=== PATIENT | female | born 1975 | race Caucasian/White ===

== ENCOUNTER → 2018-08-25 09:36 | Outpatient (CLI) | payer BC, SELFPAY ==
[2018-08-25 09:54] LABS: Basophils # 0.1 K/mm3 (0-0.2); Basophils % 0.9 % (0.1-2.0); Eosinophils # 0.2 K/mm3 (0.0-0.4); Eosinophils % 2.4 % (0.1-12.0); Hematocrit 43.2 % (37.0-47.0); Hemoglobin 14.3 g/dL (12.2-16.2); Lymphocytes # 2.3 K/mm3 (0.7-4.5); Lymphocytes % 25.7 % (10-50); Mean Corpuscular Hemoglobin 30.9 pg (27.0-31.2); Mean Corpuscular Volume 93.7 fl (81-99); Mean Platelet Volume 7.5 fl (7.4-10.4); Monocytes # 0.4 K/mm3 (0.1-1.0); Neutrophils % 67.1 % (37.0-80.0); Platelet Count 299 K/mm3 (142-424); Red Blood Count 4.61 M/mm3 (4.20-5.40); Red Cell Distribution Width 13.2 % (11.5-17.5); White Blood Count 8.9 K/mm3 (4.8-10.8)
[2018-08-25 10:23] LABS: Hemoglobin A1C 7.1 % (0.0-7.0)
[2018-08-25 11:46] LABS: Alanine Aminotransferase 27 U/L (12-78); Albumin Level 3.6 gm/dL (3.4-5.0); Albumin/Globulin Ratio 0.9 (1.1-1.8); Alkaline Phosphatase 100 U/L (46-116); Anion Gap 16.4 mEq/L (5-15); Aspartate Amino Transferase 11 U/L (15-37); Bilirubin,Total 0.2 mg/dL (0.2-1.0); Blood Urea Nitrogen 12 mg/dL (7-18); Calcium 9.2 mg/dL (8.5-10.1); Carbon Dioxide 24 mmol/L (21.0-32.0); Chloride 103 mmol/L (98-107); Chol/HDL Ratio 7.4 (1-3.5); Cholesterol 206 mg/dL (140-200); Creatinine,Serum 0.68 mg/dL (0.55-1.02); Estimated Glomerular Filt Rate 95 ml/min (>60); GFR (African American) 115 ML/MIN (>60); Globulin 3.8 gm/dl (1.3-3.2); Glucose 155 mg/dL (74-106); HDL Cholesterol 28 mg/dL (29-89); LDL Cholesterol 144 mg/dL (0-130); Potassium 4.4 mmoL/L (3.5-5.1); Sodium 139 mmol/L (136-145); Thyroid Stimulating Hormone 1.67 uIU/ml (0.358-3.740); Total Protein,Serum 7.4 gm/dL (6.4-8.2); Triglycerides 171 mg/dL (30-200); VLDL Cholesterol 34 mg/dL (0-40)
[2018-08-26 16:15] LABS: Vitamin B12 269 pg/mL (232-1245)
== END ==
PROVIDERS: Visit Provider Nurse Practitioner Family
DX: E78.5 Hyperlipidemia, unspecified (principal); E53.8 Deficiency of other specified B group vitamins; E66.01 Morbid (severe) obesity due to excess calories
CPT/HCPCS: 36415; 80053; 80061; 82607; 83036; 84443; 85025

== ENCOUNTER → 2018-09-15 09:17 | Outpatient (CLI) | payer BC, SELFPAY ==
--- NOTE | 2018-09-15 09:18 | MM_ITS ---
MM Dig screening mamm BI w/CAD CAD Screening COMPARISON: Digital mammograms with CAD 04/17/2016 INDICATION: There is no personal or family history of breast cancer TECHNIQUE: Standard CC and MLO images were obtained. R2 CAD reviewed. FINDINGS: Mild to moderate diffuse fibroglandular densities are seen in both breasts and the findings are bilateral and symmetrical. Again noted is a tiny benign-appearing nodular density outer quadrant left breast likely a tiny cyst or intramammary node. There is a possible asymmetric density left breast best seen on the MLO view with irregular possibly spiculated borders. Recommend patient return for spot compression views in MLO and CC projection, ultrasound may be necessary as well. There are no suspicious microcalcifications. IMPRESSION: Fibrofatty parenchyma with possible developing asymmetric density left breast BI-RADS Category: 0 Need Additional Imaging Evaluation RECOMMENDED FOLLOW-UP: IMM - IMMEDIATE FOLLOW-UP RECOMMENDED (A letter has been sent to the patient regarding results of the study.)
== END ==
PROVIDERS: PCP Nurse Practitioner Family; Visit Provider Nurse Practitioner Family
DX: Z12.31 Encounter for screening mammogram for malignant neoplasm of breast (principal)
CPT/HCPCS: 77067

== ENCOUNTER → 2018-10-06 13:18 | Outpatient (CLI) | payer BC, SELFPAY ==
--- NOTE | 2018-10-06 13:21 | US_ITS ---
MM Dig mamm DX unilat LT CAD, US breast LT complete Ordering Physician: Soniya Wilks Patient Age: 43 years Female COMPARISON: April 17, 2016 &. September 15, 2018 bilateral screening mammogram studies studies INDICATION: Questionable nodular density superior left breast recent screening mammogram, now for further evaluation . DIAGNOSTIC LEFT MAMMOGRAM with spot views ... Spot CC, MLO views performed along with a full breast 90 degree view left breast The nodular densities seen on recent mammogram are less evident & to dissipate on today's 90 degree and CC spot view study.. Again densities seem to particularly dissipate on the 90 degrees view & appear to compress out and less evident on today's cc view. No new areas of significant concern. . ULTRASOUND LEFT BREAST including axillary ultrasound survey survey entire left breast including axillary survey No cyst nor solid nodule. No architectural distortion. No findings of concern by ultrasound. Axillary survey demonstrates scattered benign axillary lymph nodes. ------IMPRESSION: Both today's mammogram views, and the subsequent unremarkable breast ultrasound, overall decreased concern regarding any significant new finding. Suspect prior studies merely reflected overlapping shadows. .. Recommend a follow-up left mammogram in 6-7 months to confirm stability hopefully can resume routine annual screening protocol thereafter. BI-RADS Category: 3 Probably Benign Finding Short Term Follow-up RECOMMENDED FOLLOW-UP: 6M 6 MONTH FOLLOW-UP A letter has been sent to the patient regarding results of the study.)
== END ==
PROVIDERS: PCP Internal Medicine Adolescent Medicine; Visit Provider Nurse Practitioner Family
DX: R92.8 Other abnormal and inconclusive findings on diagnostic imaging of breast (principal)
CPT/HCPCS: 76641; 77065

== ENCOUNTER → 2019-05-07 07:19 | Outpatient (CLI) | payer BC, SELFPAY ==
[2019-05-07 07:43] LABS: Basophils # 0.1 K/mm3 (0-0.2); Basophils % 0.7 % (0.1-2.0); Eosinophils # 0.2 K/mm3 (0.0-0.4); Eosinophils % 1.9 % (0.1-12.0); Hematocrit 41.9 % (37.0-47.0); Hemoglobin 12.9 g/dL (12.2-16.2); Lymphocytes # 2.4 K/mm3 (0.7-4.5); Lymphocytes % 28.5 % (10-50); Mean Corpuscular HGB Conc 30.9 g/dL (31.8-35.4); Mean Corpuscular Volume 97.2 fl (81-99); Mean Platelet Volume 9.1 fl (7.4-10.4); Monocytes # 0.5 K/mm3 (0.1-1.0); Monocytes % 5.8 % (1.7-9.3); Neutrophils # 5.4 K/mm3 (1.8-7.8); Neutrophils % 63.1 % (37.0-80.0); Platelet Count 277 K/mm3 (142-424); Red Blood Count 4.31 M/mm3 (4.20-5.40); White Blood Count 8.5 K/mm3 (4.8-10.8)
[2019-05-07 08:02] LABS: Hemoglobin A1C 7.3 % (0.0-7.0)
[2019-05-07 08:48] LABS: Alanine Aminotransferase 26 U/L (12-78); Albumin Level 3.5 gm/dL (3.4-5.0); Alkaline Phosphatase 115 U/L (46-116); Aspartate Amino Transferase 9 U/L (15-37); Bilirubin,Total 0.2 mg/dL (0.2-1.0); Blood Urea Nitrogen 11 mg/dL (7-18); Calcium 9.1 mg/dL (8.5-10.1); Carbon Dioxide 26 mmol/L (21.0-32.0); Chloride 101 mmol/L (98-107); Chol/HDL Ratio 6.7 (1-3.5); Cholesterol 193 mg/dL (140-200); Creatinine,Serum 0.84 mg/dL (0.55-1.02); Estimated Glomerular Filt Rate 74 ml/min (>60); GFR (African American) 90 ML/MIN (>60); Globulin 3.5 gm/dl (1.3-3.2); Glucose 256 mg/dL (74-106); HDL Cholesterol 29 mg/dL (29-89); LDL Cholesterol 117 mg/dL (0-130); Sodium 137 mmol/L (136-145); Triglycerides 234 mg/dL (30-200); VLDL Cholesterol 47 mg/dL (0-40)
[2019-05-08 11:10] LABS: Creatinine, Urine 140.6 mg/dL (Not Estab.); Microalbumin, Urine 12.2 ug/mL (Not Estab.)
[2019-05-08 17:27] LABS: Vitamin B12 277 pg/mL (232-1245)
== END ==
PROVIDERS: Visit Provider Nurse Practitioner Family
DX: E78.5 Hyperlipidemia, unspecified (principal); E53.8 Deficiency of other specified B group vitamins; E11.9 Type 2 diabetes mellitus without complications
CPT/HCPCS: 36415; 80053; 80061; 82043; 82570; 82607; 83036; 85025

== ENCOUNTER → 2019-06-15 12:49 | Outpatient (CLI) | payer BC, SELFPAY ==
--- NOTE | 2019-06-15 13:06 | MM_ITS ---
PROCEDURE: MM DIG MAMM DX UNILAT LT CAD CLINICAL INDICATION: 6 MO FU COMPARISON: DMSB DIG MAMM-SCREEN JULIO from 04/17/2016 [facility] MM Dig screening mamm BI w/CAD from 09/15/2018 DXLT MM Dig mamm DX unilat LT CAD from 10/06/2018 TECHNIQUE: Standard CC and MLO images were obtained. R2 CAD reviewed. FINDINGS: Scattered fibroglandular densities are seen in the breast. There is a stable benign-appearing nodular density near the axillary tail and this is likely low-lying node. There are no other nodular densities identified. There are no suspicious microcalcifications. IMPRESSION: Stable exam with no suspicious lesions seen, recommend the patient return to normal yearly screening BI-RAD Category: 2 Benign Finding(s) FOLLOW-UP: 6M 6Month Follow-up to return to normal yearly screening schedule (A letter has been sent to the patient regarding results of the study.) Dictated by: Dr. Joshua Jett MD 06/17/2019 09:[address] Joshua Jett MD in [place] 06/17/2019 09:59
--- NOTE | 2019-06-15 13:06 | US_ITS ---
PROCEDURE: US BREAST LT COMPLETE CLINICAL INDICATION: 6 MO FU COMPARISON: BREASTLT US breast LT complete from 10/06/2018 FINDINGS: Diffuse somewhat homogeneous echogenicity is seen throughout the breast. There is no suspicious cystic or solid lesion identified. There are couple normal appearing nodes in the axilla.. IMPRESSION: Unremarkable ultrasound left breast and recommend the patient continue with yearly screening mammography Dictated by: Dr. Joshua Jett MD 06/17/2019 10:[address] Joshua Jett MD in [place] 06/17/2019 10:01
== END ==
PROVIDERS: PCP Internal Medicine Adolescent Medicine; Visit Provider Nurse Practitioner Family
DX: R92.8 Other abnormal and inconclusive findings on diagnostic imaging of breast (principal)
CPT/HCPCS: 76641; 77065

== ENCOUNTER → 2020-12-30 07:15 | Outpatient (CLI) | payer BC, SELFPAY ==
[2020-12-30 08:01] LABS: Basophils # 0.1 K/mm3 (0-0.2); Basophils % 0.6 % (0.1-2.0); Eosinophils # 0.2 K/mm3 (0.0-0.4); Eosinophils % 1.8 % (0.1-12.0); Hematocrit 39.7 % (37.0-47.0); Hemoglobin 13.5 g/dL (12.2-16.2); Lymphocytes % 31.9 % (10-50); Mean Corpuscular HGB Conc 34.2 g/dL (31.8-35.4); Mean Corpuscular Hemoglobin 29.9 pg (27.0-31.2); Mean Corpuscular Volume 87.4 fl (81-99); Mean Platelet Volume 9.5 fl (7.4-10.4); Monocytes # 0.4 K/mm3 (0.1-1.0); Monocytes % 4.5 % (1.7-9.3); Neutrophils # 5.7 K/mm3 (1.8-7.8); Neutrophils % 61.2 % (37.0-80.0); Platelet Count 201 K/mm3 (142-424); Red Blood Count 4.54 M/mm3 (4.20-5.40); Red Cell Distribution Width 13.6 % (11.5-17.5); White Blood Count 9.3 K/mm3 (4.8-10.8)
[2020-12-30 08:13] LABS: Chloride 104 mmol/L (98-107); Potassium 3.8 mmoL/L (3.5-5.1); Sodium 134 mmol/L (136-145)
[2020-12-30 08:16] LABS: Alanine Aminotransferase 29 U/L (12-78); Albumin Level 3.8 g/dl (3.5-5.0); Albumin/Globulin Ratio 1.5 (1.1-1.8); Alkaline Phosphatase 138 U/L (38-126); Anion Gap 9.8 mEq/L (5-15); Aspartate Amino Transferase 23 U/L (14-36); Bilirubin,Total 0.4 mg/dl (0.2-1.3); Blood Urea Nitrogen 7 mg/dl (7-17); Carbon Dioxide 24 mmol/L (22.0-30.0); Cholesterol 192 mg/dl (140-200); Estimated Glomerular Filt Rate 173 ml/min (>60); GFR (African American) 210 ML/MIN (>60); Globulin 2.6 g/dL (1.3-3.2); Total Protein,Serum 6.4 g/dl (6.3-8.2); Triglycerides 386 mg/dl (30-150); VLDL Cholesterol 77 mg/dL (0-40)
[2020-12-30 08:17] LABS: Calcium 8.7 mg/dl (8.4-10.2); Chol/HDL Ratio 6.2 (1-3.5); Glucose 286 mg/dl (74-100); HDL Cholesterol 31 mg/dl (40-60)
[2020-12-30 08:27] LABS: Hemoglobin A1C 11.2 % (4.0-6.0)
[2020-12-30 08:33] LABS: 25-OH Vitamin D, Total 26.3 ng/mL (30-100)
[2020-12-30 08:47] LABS: Thyroid Stimulating Hormone 2.97 uIU/mL (0.465-4.68)
[2020-12-30 09:57] LABS: Vitamin B12 291 pg/mL (239-931)
== END ==
PROVIDERS: Visit Provider Nurse Practitioner Family
DX: Z00.00 Encounter for general adult medical examination without abnormal findings (principal); E78.5 Hyperlipidemia, unspecified; E55.9 Vitamin D deficiency, unspecified; R20.2 Paresthesia of skin; Z79.899 Other long term (current) drug therapy
CPT/HCPCS: 36415; 80053; 80061; 82306; 82607; 83036; 84443; 85025

== ENCOUNTER → 2021-01-09 09:53 | Outpatient (CLI) | payer BC, SELFPAY ==
--- NOTE | 2021-01-09 09:55 | MM_ITS ---
PROCEDURE: MM DIG SCREENING MAMM BI W/CAD Digital Breast Tomosynthesis Included CLINICAL INDICATION: SCREENING There is no personal or family history of breast cancer. COMPARISON: MG [facility] MM Dig screening mamm BI w/CAD from 09/15/2018 MG DXLT MM Dig mamm DX unilat LT CAD from 10/06/2018 MG MM DIG MAMM DX UNILAT LT CAD from 06/15/2019 TECHNIQUE: Standard CC and MLO images and 3D Tomosynthesis was obtained. R2 CAD reviewed. FINDINGS: Prominent diffuse fibroglandular densities are seen throughout both breast the findings are fairly symmetrical bilaterally. Couple of benign-appearing microcalcifications deep within the left breast. There is a tiny benign-appearing nodular density low in the axilla left breast likely a low-lying node.. There is a possible new nodular density deep within the right breast only definitely seen on the MLO view and best appreciated on the ronn images. Recommend the patient return for spot compression views the area marked on the images and ultrasound for additional evaluation. IMPRESSION: Moderate diffuse breast density with possible new density right breast BI-RAD Category: 0 Need Additional Imaging Evaluation FOLLOW-UP: IMM Immediate Follow-up Recommended (A letter has been sent to the patient regarding results of the study.) Dictated by: Dr. Joshua Jett MD 01/11/2021 08:05 Dr. Joshua Jett MD in [place] 01/11/2021 08:05
== END ==
PROVIDERS: PCP Nurse Practitioner Family; Visit Provider Nurse Practitioner Family
DX: Z12.31 Encounter for screening mammogram for malignant neoplasm of breast (principal)
CPT/HCPCS: 77063; 77067

== ENCOUNTER → 2021-02-13 14:39 | Outpatient (CLI) | payer BC, SELFPAY ==
--- NOTE | 2021-02-13 14:42 | MM_ITS ---
PROCEDURE: MM DIG MAMM DX UNILAT RT CAD Digital Breast Tomosynthesis Included CLINICAL INDICATION: ABN MAMM OF RT BREAST COMPARISON: MG [facility] MM Dig screening mamm BI w/CAD from 09/15/2018 MG DXLT MM Dig mamm DX unilat LT CAD from 10/06/2018 MG MM DIG MAMM DX UNILAT LT CAD from 06/15/2019 MG MM DIG SCREENING MAMM BI W/CAD from 01/09/2021 US US BREAST RT COMPLETE from 02/13/2021 TECHNIQUE: Spot-compression views are performed of the right breast. FINDINGS: The area of asymmetry in the upper outer aspect of the right breast does appear to compress out as fibroglandular tissue. Right breast ultrasound: No cystic or solid lesions evident. IMPRESSION: The area of asymmetric density in the upper outer aspect of the right breast does appear to compress out and may represent fibroglandular tissue with no sonographic abnormality. Recommend six-month mammographic follow-up. Repeat ultrasound can be performed if the asymmetry persists. BI-RAD Category: 3 Probably Benign Finding Short Term Follow-Up FOLLOW-UP: 6M 6 Month Follow-up (A letter has been sent to the patient regarding results of the study.) Dictated by: Camilo Vora MD 02/17/2021 11:59 Camilo Vora MD in [place] 02/17/2021 11:59
== END ==
PROVIDERS: PCP Nurse Practitioner Family; Visit Provider Nurse Practitioner Family
DX: R92.8 Other abnormal and inconclusive findings on diagnostic imaging of breast (principal)
CPT/HCPCS: 76641; 77061; 77065; G0279

== ENCOUNTER → 2021-03-20 07:29 | Outpatient (CLI) | payer BC, SELFPAY ==
[2021-03-20 08:15] LABS: Hemoglobin A1C 7.3 % (4.0-6.0)
[2021-03-20 08:37] LABS: Chloride 108 mmol/L (98-107); Sodium 139 mmol/L (136-145)
[2021-03-20 08:38] LABS: Potassium 4.1 mmoL/L (3.5-5.1)
[2021-03-20 08:40] LABS: Alanine Aminotransferase 14 U/L (12-78); Albumin/Globulin Ratio 1.4 (1.1-1.8); Alkaline Phosphatase 94 U/L (38-126); Anion Gap 14.1 mEq/L (5-15); Aspartate Amino Transferase 17 U/L (14-36); Blood Urea Nitrogen 13 mg/dl (7-17); Carbon Dioxide 21 mmol/L (22.0-30.0); Estimated Glomerular Filt Rate 108 ml/min (>60); GFR (African American) 131 ML/MIN (>60); Globulin 2.8 g/dL (1.3-3.2); Total Protein,Serum 6.8 g/dl (6.3-8.2)
[2021-03-20 08:41] LABS: Bilirubin,Total < 0.1 mg/dl (0.2-1.3); Calcium 9.1 mg/dl (8.4-10.2); Glucose 156 mg/dl (74-100)
== END ==
PROVIDERS: Visit Provider Nurse Practitioner Family
DX: E11.65 Type 2 diabetes mellitus with hyperglycemia (principal); B35.1 Tinea unguium
CPT/HCPCS: 36415; 80053; 83036

== ENCOUNTER 2021-06-30 08:00 | Outpatient (RCR) | payer BC, SELFPAY ==
--- NOTE | 2021-06-05 09:12 | [facility].PTOPEV ---
PT Outpatient Evaluation Rehab PT Outpatient Evaluation Start: 06/05/21 08:25 Freq: Status: Active Protocol: Document 06/05/21 08:25 BABAK (Rec: 06/05/21 08:42 BABAK [id number]) Electronically Signed By Vincent Greenfield, PT 06/05/21 08:25 Outpatient Therapy Subjective History Subjective History Pt reports insidious onset right UE N&T beginning ~2 yrs ago. Pt reports exacerbation ~ 6months ago, with s/s from right posterior shoulder area to fingers, mild pain, N&T. Pt reports recent MRI of cervical spine has revealed ' DDD, and disc buldges'. Chief Complaint Pain,Stiff,Paresthesia Symptom Type Ache,Dull,Numbness,Tingling Symptoms Relieved By Rest/Positioning,Heat Symptoms Aggravated By Physical Activity,Lifting Prior Functional Limitations Reaching,Lifting,Housework, Desk Work/Reading,Driving Current Functional Limitations Reaching,Lifting,Housework, Desk Work/Reading,Driving Symptom Description Constant but Variable Level of pain today (0-10) 1 Pain scale - at its best (0-10) 0 Pain scale - at its worst (0-10) 5 Cervical Eval Palpation Cervical Muscles R CT Junction,R Upper Trapezius Cervical/Thoracic Palpation Findings Tenderness,Trigger Point Posture Head/C-Spine Posture Sitting Position Flexed Head/C-Spine Posture Standing Position Flexed Flexibility Deficits Upper Trapezius Muscle Length (R) Moderate Tightness,(L) Moderate Tightness Levaetor Scapulae Muscle Length (R) Moderate Tightness,(L) Moderate Tightness Scalene Group Muscle Length (R) Moderate Tightness,(L) Moderate Tightness Passive Joint Mobility Cervical PIVM Dec: R OA L OA R AA L AA R C2/3 L C2/3 R C3/4 L C3/4 R C4/5 L C4/5 R C5/6 L C5/6 R C6/7 L C6/7 R C7/T1 L C7/T1 AROM Cervical Spine Extension Active Range of 0-35 Motion (degrees) C
== END 2021-06-30 08:05 | disposition home or self-care (01) ==
LOC: PT 08:00
PROVIDERS: PCP Nurse Practitioner Family; Visit Provider Nurse Practitioner Family
DX: M54.2 Cervicalgia (principal)
CPT/HCPCS: 97010; 97012; 97014; 97035; 97110; 97163; G0283

== ENCOUNTER → 2021-08-08 15:05 | Outpatient (CLI) | payer BC, SELFPAY | PROVIDERS: PCP Nurse Practitioner Family; Visit Provider Nurse Practitioner | DX: U07.1 COVID-19 (principal) | CPT/HCPCS: C9803; U0003; U0005 ==

== ENCOUNTER → 2021-08-29 08:00 | Outpatient (CLI) | payer BC, SELFPAY ==
[2021-08-30 08:28] LABS: Covid-19 Nasal PCR Sendout Lex NOT DETECTED
== END ==
PROVIDERS: Visit Provider Nurse Practitioner
DX: Z20.822 Contact with and (suspected) exposure to COVID-19 (principal)
CPT/HCPCS: C9803; U0004; U0005

== ENCOUNTER → 2022-02-07 07:38 | Outpatient (CLI) | payer BC, SELFPAY ==
--- NOTE | 2022-02-07 07:41 | MM_ITS ---
PROCEDURE INFORMATION: Exam: MG Bilateral Diagnostic Breast Tomosynthesis Exam date and time: 02/07/2022 7:58 AM Age: 47 years old Clinical indication: Short-term radiographic followup for tissue asymmetry in the right breast TECHNIQUE: Imaging protocol: Bilateral Diagnostic tomosynthesis and 2D mammography including computer-aided detection (CAD) when performed. Unilateral or bilateral exam. COMPARISON: 1. MG MM DIG MAMM DX UNILAT RT CAD 02/13/2021 2:42 PM 2. MG MM DIG SCREENING MAMM BI W/CAD 01/09/2021 10:08 AM FINDINGS: MAMMOGRAPHY: The breasts are heterogeneously dense, which may obscure small masses. There is no stellate mass, architectural distortion or suspicious microcalcifications in either breast to suggest malignancy. No suspicious focal asymmetries are identified. No skin thickening or axillary adenopathy. IMPRESSION: No mammographic evidence of malignancy. Annual bilateral mammographic screening is recommended unless otherwise clinically indicated. ASSESSMENT: BI-RADS Category 1: Negative
== END ==
LOC: RAD 07:38
PROVIDERS: PCP Nurse Practitioner Family; Visit Provider Nurse Practitioner Family
DX: R92.8 Other abnormal and inconclusive findings on diagnostic imaging of breast (principal)
CPT/HCPCS: 77062; 77066; G0279

== ENCOUNTER 2022-05-08 15:00 | Outpatient (RCR) | payer BC, SELFPAY | END 2022-05-08 15:05 | disposition home or self-care (01) | LOC: PT 15:00 | PROVIDERS: PCP Nurse Practitioner Family; Visit Provider Anesthesiology | DX: M47.814 Spondylosis without myelopathy or radiculopathy, thoracic region (principal) | CPT/HCPCS: 97010; 97014; 97110; 97112; 97140; 97163; G0283 ==

== ENCOUNTER → 2023-02-21 06:57 | Outpatient (CLI) | payer BC, SELFPAY ==
[2023-02-21 07:35] LABS: Creatinine,Urine Random 50 mg/dL (Not Estab.)
[2023-02-21 07:40] LABS: Basophils # 0.1 K/mm3 (0-0.2); Basophils % 0.6 % (0.1-2.0); Eosinophils # 0.2 K/mm3 (0.0-0.4); Eosinophils % 1.5 % (0.1-12.0); Hematocrit 48.7 % (37.0-47.0); Hemoglobin 15.1 g/dL (12.2-16.2); Lymphocytes # 3.8 K/mm3 (0.7-4.5); Mean Corpuscular Hemoglobin 29.9 pg (27.0-31.2); Mean Corpuscular Volume 96.5 fl (81-99); Mean Platelet Volume 9.5 fl (7.4-10.4); Microalbumin < 6.000 mg/L (0-16.7); Monocytes # 0.6 K/mm3 (0.1-1.0); Monocytes % 4.8 % (1.7-9.3); Neutrophils # 7.3 K/mm3 (1.8-7.8); Neutrophils % 61.1 % (37.0-80.0); Platelet Count 248 K/mm3 (142-424); Red Blood Count 5.05 M/mm3 (4.20-5.40); Red Cell Distribution Width 13.4 % (11.5-17.5); White Blood Count 11.9 K/mm3 (4.8-10.8)
[2023-02-21 08:15] LABS: Hemoglobin A1C 7.5 % (4.0-6.0)
[2023-02-21 08:35] LABS: Chloride 104 mmol/L (98-107)
[2023-02-21 08:36] LABS: Potassium 4.3 mmoL/L (3.5-5.1); Sodium 137 mmol/L (136-145)
[2023-02-21 08:38] LABS: Alanine Aminotransferase 37 U/L (12-78); Alkaline Phosphatase 124 U/L (38-126); Anion Gap 13.3 mEq/L (5-15); Aspartate Amino Transferase 29 U/L (14-36); Bilirubin,Total 0.4 mg/dl (0.2-1.3); Blood Urea Nitrogen 7 mg/dl (7-17); Carbon Dioxide 24 mmol/L (22.0-30.0); Cholesterol 162 mg/dl (140-200); Estimated Glomerular Filt Rate 132 ml/min (>60); GFR (African American) 160 ML/MIN (>60)
[2023-02-21 08:39] LABS: Albumin Level 4.4 g/dl (3.5-5.0); Albumin/Globulin Ratio 1.7 (1.1-1.8); Calcium 9.7 mg/dl (8.4-10.2); Chol/HDL Ratio 4.8 (1-3.5); Globulin 2.6 g/dL (1.3-3.2); Glucose 233 mg/dl (74-100); HDL Cholesterol 34 mg/dl (40-60)
[2023-02-21 08:41] LABS: Triglycerides 415 mg/dl (30-150)
[2023-02-21 09:51] LABS: Vitamin B12 > 1000 pg/mL (239-931)
== END ==
PROVIDERS: PCP Nurse Practitioner Family; Visit Provider Nurse Practitioner Family
DX: E11.40 Type 2 diabetes mellitus with diabetic neuropathy, unspecified (principal); E78.5 Hyperlipidemia, unspecified; E53.8 Deficiency of other specified B group vitamins
CPT/HCPCS: 36415; 80053; 80061; 82043; 82570; 82607; 83036; 85025

== ENCOUNTER 2023-11-28 15:48 | Outpatient (CLI) | payer BC, SELFPAY ==
--- NOTE | 2023-11-28 15:50 | MM_ITS ---
PROCEDURE INFORMATION: Exam: MG Bilateral Screening 3D Mammography Exam date and time: 11/28/2023 3:50 PM Age: 48 years old Clinical indication: Screening mammogram TECHNIQUE: Imaging protocol: Bilateral Screening tomosynthesis and 2D mammography including computer-aided detection (CAD) when performed. COMPARISON: 1. MG MM DIG MAMM BI DX W/CAD 02/07/2022 7:58 AM 2. MG MM DIG MAMM DX UNILAT RT CAD 02/13/2021 2:42 PM 3. MG MM DIG SCREENING MAMM BI W/CAD 01/09/2021 10:08 AM 4. MG MM DIG MAMM DX UNILAT LT CAD 06/15/2019 1:22 PM FINDINGS: MAMMOGRAPHY: Breast composition: There are scattered areas of fibroglandular density. Mass: None. Architectural distortion: No new or suspicious architectural distortion. Calcifications: No new or suspicious calcifications are present Asymmetric density: No new or suspicious asymmetric density is present Skin thickening: None. Axillary adenopathy: None. IMPRESSION: No mammographic evidence of malignancy. Recommend annual screening mammography unless otherwise clinically indicated. ASSESSMENT: BI-RADS category 1: Negative.
== END 2023-11-28 23:59 | disposition home or self-care (01) ==
LOC: RAD 15:48
PROVIDERS: PCP Nurse Practitioner Family; Visit Provider Nurse Practitioner Family
DX: Z12.31 Encounter for screening mammogram for malignant neoplasm of breast (principal)
CPT/HCPCS: 77063; 77067

== ENCOUNTER 2024-07-08 08:11 | Outpatient (CLI) | payer BC, SELFPAY ==
[2024-07-08 09:06] LABS: Basophils % 0.8 % (0.1-2.0); Eosinophils % 1.4 % (0.1-12.0); Hematocrit 44.4 % (37.0-47.0); Hemoglobin 14.6 g/dL (12.2-16.2); Lymphocytes # 2.4 K/mm3 (0.7-4.5); Lymphocytes % 21.3 % (10-50); Mean Corpuscular HGB Conc 32.9 g/dL (31.8-35.4); Mean Corpuscular Hemoglobin 30.5 pg (27.0-31.2); Mean Corpuscular Volume 92.9 fl (81-99); Mean Platelet Volume 11.7 fl (7.4-10.4); Monocytes % 6.3 % (1.7-9.3); Neutrophils # 7.7 K/mm3 (1.8-7.8); Neutrophils % 69.7 % (37.0-80.0); Platelet Count 232 K/mm3 (142-424); Red Blood Count 4.78 M/mm3 (4.20-5.40); Red Cell Distribution Width 12.5 % (11.5-17.5)
[2024-07-08 09:07] LABS: Basophils # 0.1 K/mm3 (0-0.2); Eosinophils # 0.2 K/mm3 (0.0-0.4); Monocytes # 0.7 K/mm3 (0.1-1.0)
[2024-07-08 09:28] LABS: Albumin Level 4.2 g/dl (3.5-5.0); Chloride 107 mmol/L (98-107)
[2024-07-08 09:29] LABS: Potassium 4.5 mmoL/L (3.5-5.1); Sodium 134 mmol/L (136-145)
[2024-07-08 09:31] LABS: Alanine Aminotransferase 33 U/L (12-78); Albumin/Globulin Ratio 1.8 (1.1-1.8); Anion Gap 8.5 mEq/L (5-15); Aspartate Amino Transferase 31 U/L (14-36); Blood Urea Nitrogen 8 mg/dl (7-17); Carbon Dioxide 23 mmol/L (22.0-30.0); Estimated Glomerular Filt Rate 107 ml/min (>60); GFR (African American) 129 ML/MIN (>60); Globulin 2.3 g/dL (1.3-3.2); Total Protein,Serum 6.5 g/dl (6.3-8.2)
[2024-07-08 09:32] LABS: Alkaline Phosphatase 110 U/L (38-126); Bilirubin,Total 0.5 mg/dl (0.2-1.3); Calcium 9.4 mg/dl (8.4-10.2); Chol/HDL Ratio 4.9 (1-3.5); Cholesterol 138 mg/dl (140-200); Glucose 269 mg/dl (74-100); HDL Cholesterol 28 mg/dl (40-60); Triglycerides 258 mg/dl (30-150); VLDL Cholesterol 52 mg/dL (0-40)
[2024-07-08 09:41] LABS: Microalbumin/Creatinine Ratio 59.4
[2024-07-08 09:43] LABS: Direct LDL Cholesterol 77.21 mg/dL (100-129)
[2024-07-08 09:47] LABS: Creatinine,Urine Random 56 mg/dL (Not Estab.)
[2024-07-08 10:36] LABS: Hemoglobin A1C 8.5 % (4.0-6.0)
[2024-07-08 11:09] LABS: Vitamin B12 563 pg/mL (239-931)
== END 2024-07-08 23:59 | disposition home or self-care (01) ==
LOC: LAB 08:13
PROVIDERS: PCP Nurse Practitioner Family; Visit Provider Nurse Practitioner Family
DX: E78.5 Hyperlipidemia, unspecified (principal); E53.8 Deficiency of other specified B group vitamins; E11.40 Type 2 diabetes mellitus with diabetic neuropathy, unspecified; Z79.84 Long term (current) use of oral hypoglycemic drugs
CPT/HCPCS: 36415; 80053; 80061; 82043; 82570; 82607; 83036; 85025

== ENCOUNTER 2024-10-15 16:05 | Outpatient (CLI) | payer BC, SELFPAY ==
[2024-10-15 20:54] LABS: Blood Urea Nitrogen 5 mg/dl (7-17); Calcium 9.5 mg/dl (8.4-10.2); Carbon Dioxide 23 mmol/L (22.0-30.0); Chloride 102 mmol/L (98-107); Estimated Glomerular Filt Rate 170 ml/min (>60); GFR (African American) 206 ML/MIN (>60); Glucose 283 mg/dl (74-100); Sodium 136 mmol/L (136-145)
[2024-10-15 21:23] LABS: Anion Gap 15.6 mEq/L (5-15); Potassium 4.6 mmoL/L (3.5-5.1)
== END 2024-10-15 23:59 | disposition home or self-care (01) ==
LOC: LAB 16:05
PROVIDERS: PCP Nurse Practitioner Family; Visit Provider Nurse Practitioner Family
DX: E11.40 Type 2 diabetes mellitus with diabetic neuropathy, unspecified (principal)
CPT/HCPCS: 36415; 80048; 83036

== ENCOUNTER 2024-12-04 10:10 | Outpatient (CLI) | payer BC, SELFPAY ==
--- NOTE | 2024-12-04 10:12 | MM_ITS ---
PROCEDURE INFORMATION: Exam: MG Bilateral Screening 3D Mammography Exam date and time: 12/04/2024 10:20 AM Age: 49 years old Clinical indication: Screening examination TECHNIQUE: Imaging protocol: Bilateral Screening tomosynthesis and 2D mammography including computer-aided detection (CAD) when performed. COMPARISON: 1. MG MM DIG SCREENING MAMM BI W/CAD 11/28/2023 3:50 PM 2. MG MM DIG MAMM BI DX W/CAD 02/07/2022 7:58 AM FINDINGS: MAMMOGRAPHY: Breast composition: The breasts are heterogeneously dense, which may obscure small masses. Mass: None. Architectural distortion: None. Calcifications: No suspicious calcifications. Asymmetric density: None. Skin thickening: None. Axillary adenopathy: None. IMPRESSION: No mammographic evidence of malignancy. Annual screening is recommended unless otherwise clinically indicated. ASSESSMENT: BI-RADS 1, Negative.
--- OUTSIDE RECORDS SUMMARY | 2024-12-04 10:12 | XMS_ITS | Data Portability ---
Author Organization [place] [facility] [place] & JEAN MARIE Granados ADMIN Address [address] [place] [id number] Care Team Providers Care Drilling Superintendent Name Role Phone ALEJANDRO HANDY Primary Care Provider Assessment Encounter Date Assessment Date Assessment LastModified by Organization Details LastModified Time 02/13/2024 02/13/2024 The patient is a 48 year old female self referral for bilateral foot pain with onset 2 years ago. The patient previously followed with [facility], as well as Dr. Ventura, whom was prescribing pain medication and starting the process of neuromodulation. The patient has DM (last A1C was 7). The patient smokes cigarettes. The patient presents to the clinic today for a medication refill. Because the current medication regimen is effective and well-tolerable, allowing her to remain functional, I will refill for 3 months. The patient takes Pregabalin 200 mg Q8 hours. I have advised the patient to attempt to self-taper by decreasing to Q12 hour dosing when pain isn't severe. The patient is nearly 3.5 months S/P DRG implant x4 leads at bilateral L5 and S1, which was successful in decreasing bilateral foot pain by greater than 50%, yet pain remains bothersome. The goal is to optimize DRG therapy, as such I will conduct a reprogramming to better target the pain pattern. An [employer] construction sales representative was present for education and to assist with reprogramming as needed. At the last visit, I placed a referral to vascular for further evaluation of BLE pain, as an underlying vascular etiology/patholog y may be contributing. The patient has a vascular consult next week. I will follow up for a medication refill. I have discussed in great detail our potential treatment options which would include a rehabilitative approach to care. This program would include medication management, Physical Therapy, consideration for interventional procedures as appropriate, and lifestyle modification (diet, weight loss, exercise, smoking/tobacco cessation, holistic approach including meditation and yoga). The patient understands and agrees prior to proceeding with this plan. _ __ __ __ __ __ __ __ __ __ __ __ __ __ __ __ __ __ __ __ __ __ __ __ __ __ __ __ _ I counseled the patient extensively and informed of the risks of the procedure, including the risk of paralysis, nerve damage, respiratory arrest, arrhythmias, stroke, weakness, and infection, which although very low, could result in or disability. The patient acknowledged to me that they understand and accept these risks. RN EDUCATION Extensive coordination of care provided by RN to educate patient on upcoming procedure and to coordinate obtaining extensive incoming medical records. ------ RECORDS REVIEW: As per clinic policy, we will have the patient sign a release to obtain previous imaging and clinical notes. _ __ __ __ __ __ __ __ __ __ __ __ __ __ __ __ __ __ __ __ __ __ __ __ __ __ __ __ _ PSYCH: Pain affecting Neuro-psych behavior was discussed. Discussed about pain psychological counseling as a part of the multimodal approach to pain treatment. _ __ __ __ __ __ __ __ __ __ __ __ __ __ __ __ __ __ __ __ __ __ __ __ __ __ __ __ _ REHABILITATION: Discussed with the patient the importance of diet, daily physical activity and PT. Discussed with the patient the need to be scheduled for physical therapy since physical therapy will prolong the benefits of the procedure and interventions. _ __ __ __ __ __ __ __ __ __ __ __ __ __ __ __ __ __ __ __ __ __ __ __ __ __ __ __ _ GRETCHEN: [id number] I have reviewed patient's GRETCHEN report prior to prescribing Schedule II, III, and IV medications that require review by law. [place] PDMP reviewed and appropriate. UDS reviewed and consistent with current regimen. Controlled substance contract reviewed and signed line by line. Risks of medication therapy including respiratory depression, , and hazards of operating heavy machinery including automobiles discussed at length. Patient given information with six opioid/Controlled substance safety steps: 1. Never take a prescription pain medication unless it is prescribed for you. 2. Do not take pain medicine with alcohol. 3. Do not take more doses than prescribed. 4. Use with other sedative or anti-anxiety medications can be dangerous. 5. Avoid using prescription pain medication to help you fall asleep. 6. Lock up prescription pain medications. Opioid Contract Discussion: The patient was given a copy of the Clinic Prescription Drug Agreement and was counseled extensively regarding its contents. The patient is to take their pain medication exactly as prescribed. No increases in medications are to be without first contacting the office and explaining the reason behind the increase and getting approval to do so. The patient is not to obtain medications from other providers without first notifying the other provider what they obtain from this clinic and need to notify this clinic when they obtain pain medications from other providers. The patient is to bring their pain medications to each and every office visit for pill counts to monitor compliance for their safety. The patient is subject to periodic urine drug testing at the discretion of the provider as well as state and federal regulations. The patient was warned of the risks and benefits of taking opioid pain medication, the risk of addiction, the risk of withdrawal and the differences. [email or web address] Not available 02/16/2024 09:42:58 04/28/2024 04/28/2024 The patient is a 49 year old female self referral for bilateral foot pain with onset 2 years ago. The patient previously followed with [facility], as well as Dr. Ventura, whom was prescribing pain medication and starting the process of neuromodulation. The patient has DM (last A1C was 7). The patient smokes cigarettes. [email or web address] Not available 04/28/2024 14:02:38 08/07/2024 08/07/2024 The patient is a 49 year old female self referral for bilateral foot pain with onset 2 years ago. The patient previously followed with [facility], as well as Dr. Ventura, whom was prescribing pain medication and starting the process of neuromodulation. The patient has DM (last A1C was 7). The patient smokes cigarettes. The patient recently underwent a hernia repair surgery. [email or web address] Not available 08/10/2024 09:38:08 09/04/2024 09/04/2024 The patient is a 49 year old female self referral for bilateral foot pain with onset 2 years ago. The patient previously followed with [facility], as well as Dr. Ventura, whom was prescribing pain medication and starting the process of neuromodulation. The patient has DM (last A1C was 7). The patient smokes cigarettes. The patient recently underwent a hernia repair surgery. [email or web address] Not available 09/07/2024 15:22:41 10/29/2024 10/29/2024 The patient is a 49 year old female self referral for bilateral foot pain with onset 2 years ago. The patient previously followed with [facility], as well as Dr. Ventura, whom was prescribing pain medication and starting the process of neuromodulation. The patient has DM (last A1C was 7). The patient smokes cigarettes. The patient recently underwent a hernia repair surgery. [email or web address] Not available 10/29/2024 15:12:50 Plan of Treatment Reminders Order Date Submit Date Provider Last Modified By Organization Details Last Modified Time Details Appointments OV EST 15 2024 01:45P M ABEL SWARTZ PA-C Not available Not available Not available Lab None record ed. Referral None record ed. Procedures None record ed. Surgeries None record ed. Imaging None record ed. Medication Orders pregab frantz 150 mg capsul e 2024 025 [facility], [address], [place], [place], [id number], 10/29/2024 21:48:58 pregab frantz 150 mg capsul e 2024 025 [facility], [address], [address], [place], [place], [id number], 09/07/2024 15:36:34 pregab frantz 200 mg capsul e 2024 025 [facility], [address], [address], [place], [place], [id number], 10/29/2024 14:42:53 pregab frantz 200 mg capsul e 2023 024 [facility], [address] [facility], [address], [place], [place], [id number], 10/29/2024 14:42:32 pregab frantz 200 mg capsul e 2023 024 [facility], [address] [facility], [address], [place], [place], [id number], 10/29/2024 14:42:32 Patient TargetsNo targets recorded. Patient Instructions Encounter Date Encounter Id Patient Instructions Last Modified By Organization Details Last Modified Time 04/28/2024 [id number] I have discussed in great detail our potential treatment options which would include a rehabilitative approach to care. This program would include medication management, Physical Therapy, consideration for interventional procedures as appropriate, and lifestyle modification (diet, weight loss, exercise, smoking/tobacco cessation, holistic approach including meditation and yoga). The patient understands and agrees prior to proceeding with this plan. _ __ __ __ __ __ __ __ __ __ __ __ __ __ __ __ __ __ __ __ __ __ __ __ __ __ __ __ _ I counseled the patient extensively and informed of the risks of the procedure, including the risk of paralysis, nerve damage, respiratory arrest, arrhythmias, stroke, weakness, and infection, which although very low, could result in or disability. The patient acknowledged to me that they understand and accept these risks. RN EDUCATION Extensive coordination of care provided by RN to educate patient on upcoming procedure and to coordinate obtaining extensive incoming medical records. - RECORDS REVIEW: As per clinic policy, we will have the patient sign a release to obtain previous imaging and clinical notes. _ __ __ __ __ __ __ __ __ __ __ __ __ __ __ __ __ __ __ __ __ __ __ __ __ __ __ __ _ PSYCH: Pain affecting Neuro-psych behavior was discussed. Discussed about pain psychological counseling as a part of the multimodal approach to pain treatment. _ __ __ __ __ __ __ __ __ __ __ __ __ __ __ __ __ __ __ __ __ __ __ __ __ __ __ __ _ REHABILITATION: Discussed with the patient the importance of diet, daily physical activity and PT. Discussed with the patient the need to be scheduled for physical therapy since physical therapy will prolong the benefits of the procedure and interventions. _ __ __ __ __ __ __ __ __ __ __ __ __ __ __ __ __ __ __ __ __ __ __ __ __ __ __ __ _ GRETCHEN: [id number] I have reviewed patient's GRETCHEN report prior to prescribing Schedule II, III, and IV medications that require review by law. [place] PDMP reviewed and appropriate. UDS reviewed and consistent with current regimen. Controlled substance contract reviewed and signed line by line. Risks of medication therapy including respiratory depression, , and hazards of operating heavy machinery including automobiles discussed at length. Patient given information with six opioid/Controlled substance safety steps: 1. Never take a prescription pain medication unless it is prescribed for you. 2. Do not take pain medicine with alcohol. 3. Do not take more doses than prescribed. 4. Use with other sedative or anti-anxiety medications can be dangerous. 5. Avoid using prescription pain medication to help you fall asleep. 6. Lock up prescription pain medications. Opioid Contract Discussion: The patient was given a copy of the Clinic Prescription Drug Agreement and was counseled extensively regarding its contents. The patient is to take their pain medication exactly as prescribed. No increases in medications are to be without first contacting the office and explaining the reason behind the increase and getting approval to do so. The patient is not to obtain medications from other providers without first notifying the other provider what they obtain from this clinic and need to notify this clinic when they obtain pain medications from other providers. The patient is to bring their pain medications to each and every office visit for pill counts to monitor compliance for their safety. The patient is subject to periodic urine drug testing at the discretion of the provider as well as state and federal regulations. The patient was warned of the risks and benefits of taking opioid pain medication, the risk of addiction, the risk of withdrawal and the differences. [email or web address] Not available 04/28/2024 14:01:11 08/07/2024 [id number] I have discussed in great detail our potential treatment options which would include a rehabilitative approach to care. This program would include medication management, Physical Therapy, consideration for interventional procedures as appropriate, and lifestyle modification (diet, weight loss, exercise, smoking/tobacco cessation, holistic approach including meditation and yoga). The patient understands and agrees prior to proceeding with this plan. _ __ __ __ __ __ __ __ __ __ __ __ __ __ __ __ __ __ __ __ __ __ __ __ __ __ __ __ _ I counseled the patient extensively and informed of the risks of the procedure, including the risk of paralysis, nerve damage, respiratory arrest, arrhythmias, stroke, weakness, and infection, which although very low, could result in or disability. The patient acknowledged to me that they understand and accept these risks. RN EDUCATION Extensive coordination of care provided by RN to educate patient on upcoming procedure and to coordinate obtaining extensive incoming medical records. - RECORDS REVIEW: As per clinic policy, we will have the patient sign a release to obtain previous imaging and clinical notes. _ __ __ __ __ __ __ __ __ __ __ __ __ __ __ __ __ __ __ __ __ __ __ __ __ __ __ __ _ PSYCH: Pain affecting Neuro-psych behavior was discussed. Discussed about pain psychological counseling as a part of the multimodal approach to pain treatment. _ __ __ __ __ __ __ __ __ __ __ __ __ __ __ __ __ __ __ __ __ __ __ __ __ __ __ __ _ REHABILITATION: Discussed with the patient the importance of diet, daily physical activity and PT. Discussed with the patient the need to be scheduled for physical therapy since physical therapy will prolong the benefits of the procedure and interventions. _ __ __ __ __ __ __ __ __ __ __ __ __ __ __ __ __ __ __ __ __ __ __ __ __ __ __ __ _ GRETCHEN: [id number] I have reviewed patient's GRETCHEN report prior to prescribing Schedule II, III, and IV medications that require review by law. [place] PDMP reviewed and appropriate. UDS reviewed and consistent with current regimen. Controlled substance contract reviewed and signed line by line. Risks of medication therapy including respiratory depression, , and hazards of operating heavy machinery including automobiles discussed at length. Patient given information with six opioid/Controlled substance safety steps: 1. Never take a prescription pain medication unless it is prescribed for you. 2. Do not take pain medicine with alcohol. 3. Do not take more doses than prescribed. 4. Use with other sedative or anti-anxiety medications can be dangerous. 5. Avoid using prescription pain medication to help you fall asleep. 6. Lock up prescription pain medications. Opioid Contract Discussion: The patient was given a copy of the Clinic Prescription Drug Agreement and was counseled extensively regarding its contents. The patient is to take their pain medication exactly as prescribed. No increases in medications are to be without first contacting the office and explaining the reason behind the increase and getting approval to do so. The patient is not to obtain medications from other providers without first notifying the other provider what they obtain from this clinic and need to notify this clinic when they obtain pain medications from other providers. The patient is to bring their pain medications to each and every office visit for pill counts to monitor compliance for their safety. The patient is subject to periodic urine drug testing at the discretion of the provider as well as state and federal regulations. The patient was warned of the risks and benefits of taking opioid pain medication, the risk of addiction, the risk of withdrawal and the differences. [email or web address] Not available 08/10/2024 09:41:25 09/04/2024 [id number] I have discussed in great detail our potential treatment options which would include a rehabilitative approach to care. This program would include medication management, Physical Therapy, consideration for interventional procedures as appropriate, and lifestyle modification (diet, weight loss, exercise, smoking/tobacco cessation, holistic approach including meditation and yoga). The patient understands and agrees prior to proceeding with this plan. _ __ __ __ __ __ __ __ __ __ __ __ __ __ __ __ __ __ __ __ __ __ __ __ __ __ __ __ _ I counseled the patient extensively and informed of the risks of the procedure, including the risk of paralysis, nerve damage, respiratory arrest, arrhythmias, stroke, weakness, and infection, which although very low, could result in or disability. The patient acknowledged to me that they understand and accept these risks. RN EDUCATION Extensive coordination of care provided by RN to educate patient on upcoming procedure and to coordinate obtaining extensive incoming medical records. - RECORDS REVIEW: As per clinic policy, we will have the patient sign a release to obtain previous imaging and clinical notes. _ __ __ __ __ __ __ __ __ __ __ __ __ __ __ __ __ __ __ __ __ __ __ __ __ __ __ __ _ PSYCH: Pain affecting Neuro-psych behavior was discussed. Discussed about pain psychological counseling as a part of the multimodal approach to pain treatment. _ __ __ __ __ __ __ __ __ __ __ __ __ __ __ __ __ __ __ __ __ __ __ __ __ __ __ __ _ REHABILITATION: Discussed with the patient the importance of diet, daily physical activity and PT. Discussed with the patient the need to be scheduled for physical therapy since physical therapy will prolong the benefits of the procedure and interventions. _ __ __ __ __ __ __ __ __ __ __ __ __ __ __ __ __ __ __ __ __ __ __ __ __ __ __ __ _ [facility]: [id number] I have reviewed patient's GRETCHEN report prior to prescribing Schedule II, III, and IV medications that require review by law. [place] PDMP reviewed and appropriate. UDS reviewed and consistent with current regimen. Controlled substance contract reviewed and signed line by line. Risks of medication therapy including respiratory depression, , and hazards of operating heavy machinery including automobiles discussed at length. Patient given information with six opioid/Controlled substance safety steps: 1. Never take a prescription pain medication unless it is prescribed for you. 2. Do not take pain medicine with alcohol. 3. Do not take more doses than prescribed. 4. Use with other sedative or anti-anxiety medications can be dangerous. 5. Avoid using prescription pain medication to help you fall asleep. 6. Lock up prescription pain medications. Opioid Contract Discussion: The patient was given a copy of the Clinic Prescription Drug Agreement and was counseled extensively regarding its contents. The patient is to take their pain medication exactly as prescribed. No increases in medications are to be without first contacting the office and explaining the reason behind the increase and getting approval to do so. The patient is not to obtain medications from other providers without first notifying the other provider what they obtain from this clinic and need to notify this clinic when they obtain pain medications from other providers. The patient is to bring their pain medications to each and every office visit for pill counts to monitor compliance for their safety. The patient is subject to periodic urine drug testing at the discretion of the provider as well as state and federal regulations. The patient was warned of the risks and benefits of taking opioid pain medication, the risk of addiction, the risk of withdrawal and the differences. Not available 09/07/2024 15:25:18 10/29/2024 [id number] I have discussed in great detail our potential treatment options which would include a rehabilitative approach to care. This program would include medication management, Physical Therapy, consideration for interventional procedures as appropriate, and lifestyle modification (diet, weight loss, exercise, smoking/tobacco cessation, holistic approach including meditation and yoga). The patient understands and agrees prior to proceeding with this plan. _ __ __ __ __ __ __ __ __ __ __ __ __ __ __ __ __ __ __ __ __ __ __ __ __ __ __ __ _ I counseled the patient extensively and informed of the risks of the procedure, including the risk of paralysis, nerve damage, respiratory arrest, arrhythmias, stroke, weakness, and infection, which although very low, could result in or disability. The patient acknowledged to me that they understand and accept these risks. RN EDUCATION Extensive coordination of care provided by RN to educate patient on upcoming procedure and to coordinate obtaining extensive incoming medical records. - RECORDS REVIEW: As per clinic policy, we will have the patient sign a release to obtain previous imaging and clinical notes. _ __ __ __ __ __ __ __ __ __ __ __ __ __ __ __ __ __ __ __ __ __ __ __ __ __ __ __ _ PSYCH: Pain affecting Neuro-psych behavior was discussed. Discussed about pain psychological counseling as a part of the multimodal approach to pain treatment. _ __ __ __ __ __ __ __ __ __ __ __ __ __ __ __ __ __ __ __ __ __ __ __ __ __ __ __ _ REHABILITATION: Discussed with the patient the importance of diet, daily physical activity and PT. Discussed with the patient the need to be scheduled for physical therapy since physical therapy will prolong the benefits of the procedure and interventions. _ __ __ __ __ __ __ __ __ __ __ __ __ __ __ __ __ __ __ __ __ __ __ __ __ __ __ __ _ I have reviewed patient's GRETCHEN report prior to prescribing Schedule II, III, and IV medications that require review by law. [place] PDMP reviewed and appropriate. UDS reviewed and consistent with current regimen. Controlled substance contract reviewed and signed line by line. Risks of medication therapy including respiratory depression, , and hazards of operating heavy machinery including automobiles discussed at length. Patient given information with six opioid/Controlled substance safety steps: 1. Never take a prescription pain medication unless it is prescribed for you. 2. Do not take pain medicine with alcohol. 3. Do not take more doses than prescribed. 4. Use with other sedative or anti-anxiety medications can be dangerous. 5. Avoid using prescription pain medication to help you fall asleep. 6. Lock up prescription pain medications. Opioid Contract Discussion: The patient was given a copy of the Clinic Prescription Drug Agreement and was counseled extensively regarding its contents. The patient is to take their pain medication exactly as prescribed. No increases in medications are to be without first contacting the office and explaining the reason behind the increase and getting approval to do so. The patient is not to obtain medications from other providers without first notifying the other provider what they obtain from this clinic and need to notify this clinic when they obtain pain medications from other providers. The patient is to bring their pain medications to each and every office visit for pill counts to monitor compliance for their safety. The patient is subject to periodic urine drug testing at the discretion of the provider as well as state and federal regulations. The patient was warned of the risks and benefits of taking opioid pain medication, the risk of addiction, the risk of withdrawal and the differences. [email or web address] Not available 10/29/2024 15:31:22 Reason for Referral None Reported. Problems Name Problem SNOMED Code Status Onset Date Resolution Date Notes Provider Name and Address Organization Details Recorded Time Chronic painful neuropathy due to diabetes mellitus 342811164 Active 2023 Halie Patel [place], [place] & [place] 4 13:10:23 Radicular pain 48543374 Active 2023 Hal[place] 4 13:10:24 Complex regional pain syndrome type I 507156442 Active 2023 Halie [place] 4 13:10:25 Nicotine dependence 77864790 Active 2023 Halie [place] 4 13:10:26 Intermitten t claudicatio n of bilateral lower limbs co-occurren t and due to atheroscler osis [id number] 9108 Active Brooke Beardswor th null, [place] & [place] 4 13:40:23 Peripheral angiopathy due to diabetes mellitus 025093433 Active Brooke Beard[place] th [place] 4 13:40:23 Hypercholes terolemia 88431071 Active [place] Beard[place] th [place] & [place] 4 13:40:23 Obese abdomen 614709384 Active [place]oke [place]ard[place] th [place] [facility] & [place] 4 13:40:24 History of cholecystec jaida 614041025 Active [place] Alpesh leigh null, ALIYAH - [facility] - [facility] & [place] 4 13:40:24 Swelling of lower limb 921046117 Active [place] Alpesh leigh null, ALIYAH - [facility] - [facility] & [place] 4 13:40:24 Diabetes mellitus 32643442 [facility], [facility] - [facility] & [place] 4 13:40:24 Problem Notes None recorded. Procedures Surgical History Date Name Laterality Status Provider Name and Address Organization Details Recorded Time 024 completed [place] Darrell LY - [facility] - [place] & [place] 09/04/2024 08:30:06 024 Abdominal Surgery completed [place] Darrell Silva [facility] - [place] & [place] 09/04/2024 08:30:14 023 Abdominal Surgery completed [place]AH [facility] & [place] 09/04/2024 08:30:14 022 Date of Last [facility] Ricardo [place] & [place] 09/04/2024 08:30:06 022 Date of Last Pap Smear completed [place] AL[facility]YAH [facility] & [place] 09/04/2024 08:30:06 Removal of tonsils completed Rica garay [place] - [facility] - [place] & [place] 05/23/2023 13:34:05 Cholecystectomy completed Rica Quan [place] - [facility] - [place] & [place] 05/23/2023 13:34:32 Imaging Results None recorded. Procedure Notes None recorded. Medical Equipment None Reported. Allergies No known drug allergies Medications Name Sig Start Date Stop Date Status Note LastModified by Organization Details LastModified Time senna s 8.6-50mg tablets TAKE 1 TABLET BY MOUTH EVERY DAY FOR 7 DAYS 09/04 completed Not Available Not Available Not Available metformin 500 mg tablet Take 1 tablet twice a day by oral route. 09/04 completed Not Available Not Available Not Available promethazin e-DM 6.25 mg-15 mg/5 mL oral syrup TAKE 5 ML BY MOUTH EVERY 6 HOURS FOR 7 DAYS 05/23 completed Not Available Not Available Not Available pravastatin 40 mg tablet Take 1 tablet every day by oral route. active Not Available Not Available No t Available hydrocodone 5 mg-acetamin ophen 325 mg tablet TAKE 1 TABLET BY MOUTH EVERY 8 HOURS NEEDED FOR 4 DAYS 11/12 completed Not Available Not Available Not Available prazosin 5 mg capsule Take 1 capsule twice a day by oral route. active Not Available Not Available No t Available methocarbam ol 750 mg tablet TAKE 1 TABLET BY MOUTH THREE TIMES DAILY FOR 10 DAYS 09/04 completed Not Available Not Available Not Available hydrocodone 7.5 mg-acetamin ophen 325 mg tablet 09/04 completed Not Available Not Available Not Available cephalexin 500 mg capsule TAKE 1 CAPSULE BY MOUTH EVERY 8 HOURS FOR 7 DAYS 11/20 completed Not Available Not Available Not Available doxepin 100 mg capsule Take 1 capsule every day by oral route. active Not Available Not Available No t Available pravastatin 20 mg tablet (20 mg) active Not Available Not Available Not Available mupirocin 2 % topical ointment APPLY A SMALL AMOUNT TOPICALLY WITH A Q-TIP TO JUST INSIDE EACH NOSTRIL, MORNING AND EVENING FOR 5 DAYS PRIOR TO PROCEDURE 11/20 completed Not Available Not Available Not Available chlorhexidi ne gluconate 4 % topical liquid Apply 1 applicati on and wash thoroughl y for five minutes, paying special attention to the area(s) where your surgery will be performed , night before and morning of surgery 10/20 completed Not Available Not Available Not Available Seroquel 200 mg tablet (200 mg) active Not Available Not Available Not Available tobramycin 0.3 %-dexametha sone 0.1 % eye drops,suspe nsion SHAKE LIQUID AND INSTILL 1 DROP IN RIGHT EYE EVERY 4 HOURS WHILE AWAKE 05/23 completed Not Available Not Available Not Available metformin ER 1,000 mg tablet,exte nded release 24hr (osmotic) daily (1,000 mg) 10/29 completed Not Available Not Available Not Available tizanidine 4 mg capsule Take 1 capsule every 6 hours by oral route. 11/12 completed Not Available Not Available Not Available metformin ER 1,000 mg tablet,exte nded release 24 hr Take 2 tablets every day by oral route. active Not Available Not Available No t Available pregabalin 150 mg capsule Take 1 capsule every 8 hours by oral route as directed for 30 days. 2024 active Not Available Not Available Not Avai lable pregabalin 200 mg capsule Take 1 capsule every 8 hours by oral route as directed for 30 days. 10/29 completed Not Available Not Available Not Available Viibryd 20 mg tablet Take 1 tablet every day by oral route. 04/28 completed Not Available Not Available Not Available Jardiance 25 mg tablet daily (25 mg) active Not Available Not Available No t Available BinaxNOW COVID-19 Ag Self Test kit TEST DIRECTED TODAY 05/23 completed Not Available Not Available Not Available Lagevrio 200 mg capsule (EUA) TAKE 4 CAPSULES BY MOUTH EVERY 12 HOURS FOR 5 DAYS 05/23 completed Not Available Not Available Not Available Vitals Date Recorded Body height Body mass index (BMI) Body weight Body temperature Oxygen saturation Oxygen saturation in Arterial blood by Pulse oximetry Heart rate Systolic blood pressure Diastolic blood pressure Provider Name and Address Organization Details Last Updated DateTime 4 172.72 cm 35 kg/m2 039124. 25 g 97.3 [degF] 93 % 93 % 78 /min 130 mm[Hg] 64 mm[Hg] Rica Mart [place] - [facility] & [place] 4 09:59:11 Date Recorded Body height Body mass index (BMI) Body weight Body temperature Oxygen saturation Oxygen saturation in Arterial blood by Pulse oximetry Heart rate Systolic blood pressure Diastolic blood pressure Provider Name and Address Organization Details Last Updated DateTime 4 172.72 cm 35.9 kg/m2 602749. 08 g 97.8 [degF] 99 % 99 % 80 /min 110 mm[Hg] 71 mm[Hg] Brooke Betts [place] - [facility] & [place] 4 13:39:58 Date Recorded Body height Body mass index (BMI) Body weight Body temperature Oxygen saturation Oxygen saturation in Arterial blood by Pulse oximetry Heart rate Systolic blood pressure Diastolic blood pressure Provider Name and Address Organization Details Last Updated DateTime 5 172.72 cm 35.7 kg/m2 786500. 49 g 97.1 [degF] 97 % 97 % 93 /min 114 mm[Hg] 79 mm[Hg] [facility] & [place] 5 09:57:32 Date Recorded Body height Body mass index (BMI) Body weight Body temperature Oxygen saturation Oxygen saturation in Arterial blood by Pulse oximetry Heart rate Systolic blood pressure Diastolic blood pressure Provider Name and Address Organization Details Last Updated DateTime 5 172.72 cm 36.2 kg/m2 110991. 98 g 97.6 [degF] 98 % 98 % 86 /min 110 mm[Hg] 71 mm[Hg] [facility]] & [place] 5 08:29:41 Date Recorded Body height Body mass index (BMI) Body weight Body temperature Oxygen saturation Oxygen saturation in Arterial blood by Pulse oximetry Heart rate Systolic blood pressure Diastolic blood pressure Provider Name and Address Organization Details Last Updated DateTime 5 172.72 cm 36.2 kg/m2 890014. 98 g 98.4 [degF] 97 % 97 % 94 /min 143 mm[Hg] 70 mm[Hg] Genie Severino [facility] & [place] 5 13:23:44 Social History Question Answer Notes LastModified by Organizat ion Details LastModified Time Tobacco Smoking Status Current Every Day Smoker Rica [facility] & [place] 05/23/2023 13:33:51 Do You Have An Advance Directive? No Information not available 09/04/2024 What Was The Date Of Your Most Recent Tobacco Screening? 07/21/2024 Information not available 09/04/2024 What Is Your Current Pack Years? 30ormorepacky ears [email or web address] Information not available 08/29/2023 Are You Passively Exposed To Smoke? No Information not available 09/04/2024 How Much Tobacco Do You Smoke? 1 PPD [email or web address] Information not available 05/23/2023 How Many Years Have You Smoked Tobacco? 25 Information not available 09/04/2024 Sex: Unknown Functional Status Question Answer Note LastModified by Organizat ion Details LastModified Time Do you use any illicit or recreational drugs? No Information not available 09/04/2024 What is your level of alcohol consumption? 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 [id number] Information not available 09/04/2024 Family History Relationship Description Onset Age of this Age Resolved Age Notes LastModified by Organization Details LastModified Time Mother Atrial fibrillation [email or web address] Not available 08:07:50 Father Diabetes mellitus [email or web address] Not available 2024 08:07:50 Father Chronic obstructive pulmonary disease [email or web address] Not available 2022 13:33:25 Medical History Condition Response Depression Y Anxiety Disorder N Headaches Y Diabetes Y Gynecological History Statement/Question Response Abnormal Pap N 11/26/2023 Date of Last Colonoscopy 12/25/2021 Date of LMP 09/16/2023 Sexually Active? Y Menses Monthly N Date of Last Pap Smear 08/26/2021 Current Control Method IUD Obstetrics History GPAL:G 0 P 0 0 0 0 Past Encounters Encounter ID Performer Location Encounter Start Date Encounter Closed Date Diagnosis/Indication Diagnosis SNOMED-CT Code Diagnosis ICD10 Code Diagnosis Note [id number] Mark Arteaga MD [facility] [address] [place] [address] 05/23/2023 13:05:02 05/23/2023 13:56:02 Chronic painful neuropathy due to diabetes mellitus 756428949 E11.40 Radicular pain 38992451 M54.10 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 342661313 G90.523 Nicotine dependence 5629 4008 F17.200 [id number] Mark Arteaga MD [facility] [address] [address] 07/31/2023 07:58:42 07/31/2023 08:59:18 Chronic painful neuropathy due to diabetes mellitus 851498616 E11.40 Radicular pain 88129562 M54.10 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 647742746 G90.523 Nicotine dependence 5629 4008 F17.200 Opioid dependence 480982 00 F11.20 [id number] ABEL SWARTZ PA-C [facility] [address] [place] [address] [place] [address] 4 08/29/2023 09:56:10 08/29/2023 10:45:55 Chronic painful neuropathy due to diabetes mellitus 176599888 E11.40 Radicular pain 54364267 M54.10 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 017348273 G90.523 Nicotine dependence 5629 4008 F17.200 Opioid dependence 122898 00 F11.20 [id number] ABEL SWARTZ PA-C [facility] [address] [place] [address] [place] [address] 10/21/2023 07:59:12 10/21/2023 08:27:35 Chronic painful neuropathy due to diabetes mellitus 086647318 E11.40 Radicular pain 33665477 M54.10 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 651299850 G90.523 Nicotine dependence 5629 4008 F17.200 Opioid dependence 885518 00 F11.20 [id number] ABEL SWARTZ PA-C [facility] [address] [place] [address] 11/13/2023 13:37:21 11/13/2023 14:47:08 Chronic painful neuropathy due to diabetes mellitus 818598782 E11.40 Radicular pain 94273280 M54.10 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 163806116 G90.523 Nicotine dependence 5629 4008 F17.200 Opioid dependence 855307 00 F11.20 [id number] Mark [facility]teaga MD [facility] [address] [place] [address] 11/21/2023 14:22:34 11/21/2023 15:26:56 Chronic painful neuropathy due to diabetes mellitus 819730266 E11.40 Radicular pain 73907504 M54.10 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 654335013 G90.523 Nicotine dependence 5629 4008 F17.638 [id number] Mark Arteaga MD [facility] [place] [facility] [address] [facility] [address] [place] [address] 12/05/2023 09:43:04 12/05/2023 11:21:25 Chronic painful neuropathy due to diabetes mellitus 266891437 E11.40 Radicular pain 68271952 M54.10 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 349978284 G90.523 Nicotine dependence 5629 4008 F17.908 [id number] ABEL SWARTZ PA-C [facility] [place] [facility] [address] [facility] [address] [place] [address] 12/31/2023 13:47:17 12/31/2023 14:52:30 Chronic painful neuropathy due to diabetes mellitus 110296026 E11.40 Radicular pain 04041043 M54.10 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 064627681 G90.523 Nicotine dependence 5629 4008 F17.200 Pain in both feet 929434 5099 6148315 M79.671 M79.689 [id number] Mark Arteaga MD [facility] [place] [facility] [address] [facility] [address] [place] [address] 02/13/2024 09:37:58 02/13/2024 10:20:22 Chronic painful neuropathy due to diabetes mellitus 885145123 E11.40 Radicular pain 15793155 M54.10 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 595061791 G90.523 Nicotine dependence 5629 4008 F17.200 Pain in both feet 362801 5247 7692002 M79.671 M79.053 [id number] ABEL SWARTZ PA-C [facility] [place] [facility] [address] [facility] [address] [place] [address] 04/28/2024 13:25:50 04/28/2024 14:04:43 Chronic painful neuropathy due to diabetes mellitus 051525703 E11.40 - Because the current medication regimen is effective and well-nataly able, allowing her to remain functional , I will refill for 3 months. The patient takes Pregabalin 200 mg Q8 hours. I have advised the patient to attempt to self-taper by decreasing to Q12 hour dosing when pain isn't severe. The patient has attempted to self-taper Pregabalin by decreasing to Q12 hour dosing, but pain isn't well-contr olled. Radicular pain 82898144 M54.10 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 411144218 G90.523 - The patient is nearly 6 months S/P DRG implant x4 leads at bilateral L5 and S1, which has been successful in decreasing bilateral foot pain by greater than 50%, yet pain remains bothersome .- The goal is to optimize DRG therapy, as such I will conduct a reprogramm ing to better target the pain pattern. An [employer] niels morrow was present for education and to assist with reprogramm ing as needed. Nicotine dependence 5629 4008 F17.200 Pain in both feet 120434 4460 7319653 M79.671 M79.915 [id number] ABEL SWARTZ PA-C [facility] [address] [facility] [place] [address] 08/07/2024 08:31:46 08/07/2024 08:58:26 Chronic painful neuropathy due to diabetes mellitus 062781626 E11.40 - Refill Pregabalin 200 mg Q8 hours- I have advised the patient to attempt to self-taper by decreasing to Q12 hour dosing when pain isn't severe. The patient has attempted to self-taper Pregabalin by decreasing to Q12 hour dosing, but pain isn't well-contr olled.- I will follow up in 1 month for a medication evaluation . Radicular pain 53023560 M54.10 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 337752192 G90.523 - The patient is 9 months S/P DRG implant x4 leads at bilateral L5 and S1, which has been successful in decreasing bilateral foot pain by greater than 50%, yet pain remains bothersome .- I will coordinate with an Kierra morrow to be present at the next visit for education and to assist with reprogramm ing. Nicotine dependence 5629 4008 F17.200 Pain in both feet 274774 0211 2904544 M79.671 M79.046 [id number] ABEL SWARTZ PA-C [facility] [address] [facility] [address] [place] [address] 09/04/2024 08:03:25 09/04/2024 09:12:44 Chronic painful neuropathy due to diabetes mellitus 211459716 E11.40 Radicular pain 37222806 M54.10 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 593490034 G90.523 - The patient is 10 months S/P DRG implant x4 leads at bilateral L5 and S1, which has been successful in decreasing bilateral foot pain by greater than 50%, yet pain remains bothersome .- An Kierra morrow was present for education and to assist with reprogramm ing. I emphasized that the goal is to optimize DRG therapy.- At a prior visit, I advised the patient to attempt to self-taper Pregabalin 200 mg by decreasing to Q12 hour dosing when pain isn't severe.. In effort to initiate a medication taper, I will change to Pregabalin 150 mg Q8 hours. Nicotine dependence 5629 4008 F17.200 Pain in both feet 287130 7599 7311525 M79.671 M79.593 [id number] ABEL SWARTZ PA-C [facility] [address] [facility] [address] [place] [address] 10/29/2024 13:14:22 10/29/2024 13:50:27 Chronic painful neuropathy due to diabetes mellitus 026831780 E11.40 - I decreased at the last visit to Pregabalin 150 mg Q8 hours- Refill pregabalin for 2 months.- The patient is agreeable to self-taper ing further in effort to safely and effectivel y decrease over time and optimizing DRG therapy.- Follow up in 2 months for medication refill. Radicular pain 07062526 M54.10 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 598583342 G90.523 - The patient is 1 year S/P DRG implant x4 leads at bilateral L5 and S1, which has been successful in decreasing bilateral foot pain by greater than 50%, yet pain remains bothersome at times.- I have reprogramm ing numerous times.- I won't conduct a reprogramm ing today, as she's content with the current settings. Nicotine dependence 5629 4008 F17.200 Pain in both feet 690724 6831 2437383 M79.671 M79.672 Health Concerns Section Related Observation LastModified by Organization Detai ls LastModified Time None Recorded Concern Status LastModified by Organization Details LastModified Time None Recorded Advance Directives Directive N: Payers Insurance Date Sequence Insurance Name Policy Number Policy Booker Covered Member ID Booker Member ID Guarantor Name 02/13/2024 1 [place] [id number] Rica Maza [id number] Rica Maza 10/26/2024 1 [place] [id number] Rica aMza [id number] Rica Maza Notes Date Note Type Note Provider Name and Address Organization Details Recorded Time 4 text/html The patient is a 48 year old female self referral for bilateral foot pain with onset 2 years ago. The patient previously followed with [facility], as well as Dr. Ventura, whom was prescribing pain medication and starting the process of neuromodulation. The patient has DM (last A1C was 7). The patient smokes cigarettes. The patient presents to the clinic today for a medication refill. The patient states that the current medication regimen is effective and well-tolerable, allowing her to remain functional. The patient is nearly 3.5 months S/P DRG implant x4 leads at bilateral L5 and S1, which was successful in decreasing bilateral foot pain by greater than 50%, yet pain remains bothersome. Chronic foot painOnset: 2+ yearsContext: Worsening over timeCharacter: Sting, Sharp, Numb, TinglingLocation: Bilateral feetDuration: Constant with fluctuationsInitial Intensity: 5/10Worse: MobilityBetter: RestAssociated symptoms: Denies saddle anaesthesia, denies acute bowel/bladder changes, denies acute power loss.ADLs: The patient's pain interferes with daily chores, exercise, sleep, relationships, and walking.Current Pain Medications: BeneficialPrior Pain Medications: N/ANSAIDS/OTC: Minimal benefitNon-interventional Tx: Minimal benefitPhysical Therapy: Minimal benefitInterventional Tx: N/ASurgery: N/AImaging/Studies: Lumbar MRI Mark Arteaga MD [address], [place], [address], [facility] 02/17/2024 11:47:22 text/html The patient is a 49 year old female self referral for bilateral foot pain with onset 2 years ago. The patient previously followed with [facility], as well as Dr. Ventura, whom was prescribing pain medication and starting the process of neuromodulation. The patient has DM (last A1C was 7). The patient smokes cigarettes. The patient presents to the clinic today for a medication refill. The patient is nearly 6 months S/P DRG implant x4 leads at bilateral L5 and S1, which has been successful in decreasing bilateral foot pain by greater than 50%, yet pain remains bothersome. The patient states that the current medication regimen is effective and well-tolerable, allowing her to remain functional. The patient states that she has attempted to self-taper Pregabalin by decreasing to Q12 hour dosing, but pain isn't well-controlled. Today the pain level is a 6/10. Chronic foot painOnset: 2+ yearsContext: Worsening over timeCharacter: Sting, Sharp, Numb, TinglingLocation: Bilateral feetDuration: Constant with fluctuationsInitial Intensity: 5/10Worse: MobilityBetter: RestAssociated symptoms: Denies saddle anaesthesia, denies acute bowel/bladder changes, denies acute power loss.ADLs: The patient's pain interferes with daily chores, exercise, sleep, relationships, and walking.Current Pain Medications: BeneficialPrior Pain Medications: N/ANSAIDS/OTC: Minimal benefitNon-interventional Tx: Minimal benefitPhysical Therapy: Minimal benefitInterventional Tx: N/ASurgery: N/AImaging/Studies: Lumbar MRI ABEL SWARTZ PA-C [address], [place], [address], [place] - [facility] & [place] 04/28/2024 14:03:57 5 text/html The patient is a 49 year old female self referral for bilateral foot pain with onset 2 years ago. The patient previously followed with [facility], as well as Dr. Ventura, whom was prescribing pain medication and starting the process of neuromodulation. The patient has DM (last A1C was 7). The patient smokes cigarettes. The patient recently underwent a hernia repair surgery. The patient presents to the clinic today for a medication refill. The patient is 9 months S/P DRG implant x4 leads at bilateral L5 and S1, which has been successful in decreasing bilateral foot pain by greater than 50%, yet pain remains bothersome. The patient states that the current medication regimen is effective and well-tolerable, allowing her to remain functional. The patient states that she has attempted to self-taper Pregabalin by decreasing to Q12 hour dosing, but pain isn't well-controlled. Today the pain level is a 6/10. Chronic foot painOnset: 2+ yearsContext: Worsening over timeCharacter: Sting, Sharp, Numb, TinglingLocation: Bilateral feetDuration: Constant with fluctuationsInitial Intensity: 5/10Worse: MobilityBetter: RestAssociated symptoms: Denies saddle anaesthesia, denies acute bowel/bladder changes, denies acute power loss.ADLs: The patient's pain interferes with daily chores, exercise, sleep, relationships, and walking.Current Pain Medications: BeneficialPrior Pain Medications: N/ANSAIDS/OTC: Minimal benefitNon-interventional Tx: Minimal benefitPhysical Therapy: Minimal benefitInterventional Tx: N/ASurgery: N/AImaging/Studies: Lumbar MRI ABEL SWARTZ PA-C [address], [place], [address], [facility] [place] [facility] [place] [facility] & [place] 08/10/2024 09:42:50 5 text/html The patient is a 49 year old female self referral for bilateral foot pain with onset 2 years ago. The patient previously [facility] with [facility], as well as Dr. Ventura, whom was prescribing pain medication and starting the process of neuromodulation. The patient has DM (last A1C was 7). The patient smokes cigarettes. The patient recently underwent a hernia repair surgery. The patient presents to the clinic today for a medication refill. The patient is 10 months S/P DRG implant x4 leads at bilateral L5 and S1, which has been successful in decreasing bilateral foot pain by greater than 50%, yet pain remains bothersome. The patient expresses interest in tapering Pregabalin. Today the pain level is a 4/10, but fluctuates higher 10/10. Chronic foot painOnset: 2+ yearsContext: Worsening over timeCharacter: Sting, Sharp, Numb, TinglingLocation: Bilateral feetDuration: Constant with fluctuationsInitial Intensity: 5/10Worse: MobilityBetter: RestAssociated symptoms: Denies saddle anaesthesia, denies acute bowel/bladder changes, denies acute power loss.ADLs: The patient's pain interferes with daily chores, exercise, sleep, relationships, and walking.Current Pain Medications: BeneficialPrior Pain Medications: N/ANSAIDS/OTC: Minimal benefitNon-interventional Tx: Minimal benefitPhysical Therapy: Minimal benefitInterventional Tx: N/ASurgery: N/AImaging/Studies: Lumbar MRI ABEL SWARTZ PA-C [address] [facility], [place], [address], [facility] [place] [facility] [place] 09/07/2024 15:45:41 5 text/html The patient is a 49 year old female self referral for bilateral foot pain with onset 2 years ago. The patient previously followed with [facility], as well as Dr. Ventura, whom was prescribing pain medication and starting the process of neuromodulation. The patient has DM (last A1C was 7). The patient smokes cigarettes. The patient recently underwent a hernia repair surgery. The patient presents to the clinic today for a medication refill. The patient is 1 year S/P DRG implant x4 leads at bilateral L5 and S1, which has been successful in decreasing bilateral foot pain by greater than 50%, yet pain remains bothersome. The patient reports doing well with decrease in Pregabalin last month. Today the pain level is a 6/10, but fluctuates higher 10/10. Chronic foot painOnset: 2+ yearsContext: Worsening over timeCharacter: Sting, Sharp, Numb, TinglingLocation: Bilateral feetDuration: Constant with fluctuationsInitial Intensity: 5/10Worse: MobilityBetter: RestAssociated symptoms: Denies saddle anaesthesia, denies acute bowel/bladder changes, denies acute power loss.ADLs: The patient's pain interferes with daily chores, exercise, sleep, relationships, and walking.Current Pain Medications: BeneficialPrior Pain Medications: N/ANSAIDS/OTC: Minimal benefitNon-interventional Tx: Minimal benefitPhysical Therapy: Minimal benefitInterventional Tx: N/ASurgery: N/AImaging/Studies: Lumbar MRI ABEL SWARTZ PA-C [address], [place], [address], [facility] & [place] 10/29/2024 21:49:41 OBGyn Episode No OBEpisode recorded.
--- OUTSIDE RECORDS SUMMARY | 2024-12-04 10:12 | XMS_ITS | Continuity of Care Document ---
Author Organization [facility] Phone Care Team Providers Care Outsole Paraffiner Name Role Phone JEANNA WREN Admitting JEANNA WREN Unavailable JEANNA WREN Primary Attending [phone] NO, DEFINED P Primary Care Unavailable ALLERGIES AND ADVERSE REACTIONS ALLERGIES AND ADVERSE REACTIONS Code System Allergy Substance Adverse Reaction Date Reaction (Severity) Comment Status Reported By Updated By No Known Allergies [id number] on November 05, 2023 3:33:03 PM [facility] FAMILY HISTORY RELATION: Father Status: Cause of : Unknown Age at : Unknown SNOMED-CT Diagnosis Age At Onset [id number] Diabetes mellitus RELATION: Mother Status: LIVING SNOMED-CT Diagnosis Age At Onset [id number] Atrial fibrillation [id number] Rheumatoid arthritis MEDICATIONS HOME MEDICATIONS Status RXNORM NDC Medication Dose Route Frequency Dates Comments Reported By Updated By Drug Treatment Unknown DISCHARGE MEDICATIONS Status RXNORM NDC Medication Dose Route Frequency Dates Comments Physician Updated By No Discharge Medication Info rmation Available INPATIENT MEDICATIONS Status RXNORM NDC Medication Dose Route Frequency Rat e Quantity Dates Comments Physician Updated By No Inpatient Medication Info rmation Available SOCIAL HISTORY SOCIAL HISTORY SNOMED-CT Social History Element Description Effective Dates Offered Cessation Comment UpdatedBy [id number] Historical Tobacco smoking status Current Every Day Smoker [id number] on October 22, 2023 5:13:46 PM [facility] [id number] Historical Tobacco smoking status Never Smoked [id number] on July 24, 2023 1:44:54 PM [facility] SOCIAL HISTORY - Gender Sex: Female SOCIAL HISTORY - Status : status i nformation is not available Intention in Next Year: intention information is not available SOCIAL HISTORY - Sexual Behavior Sexual Orientation Gender Identity SNOMED-CT Description SNO MED -CT Description Activity Level No of Partners Partner Type UpdatedBy Information is not available HEALTH CONCERNS Problems Concern Status Health Concern problem infor mation not available. Smoking Status Status Years Used Consumed packs p er day Health Concern smoking histo ry information not available. Family History Concern Status Health Concern family histor y information not available. ENCOUNTERS ENCOUNTER INFORMATION Reason for Visit OV Admission October 29, 2024 5:14:00 PM [place] [id number] [facility] [address] Discharge October 29, 2024 5:14:00 PM [facility] DI SCHARGED TO HOME OR SELF CARE ENCOUNTER DIAGNOSES Notes information is not maribel ilable. Code System Diagnosis Onset Date Diagnosis information is not available. ABSTRACT DIAGNOSES Code System Diagnosis Updated By M79.672 ICD10 PAIN IN LEFT FOOT [id number] on November 04, 2024 3:00:04 PM [facility] M79.671 ICD10 PAIN IN RIGHT FOOT [id number] o n November 04, 2024 3:00:04 PM [facility] E11.40 ICD10 TYPE 2 DIABETES MELLITUS WITH DIABETIC NEUROPATHY, UNSPECIFIED [id number] on November 04, 2024 3:00:04 PM [facility] Z79.84 ICD10 SENIOR LIVING (CURRE NT) USE OF ORAL HYPOGLYCEMIC DRUGS [id number] on November 04, 2024 3:00:04 PM [facility] M54.10 ICD10 RADICULOPATHY, SITE UNSPECIF IED [id number] on November 04, 2024 3:00:04 PM [facility] G90.523 ICD10 COMPLEX REGIONAL PAIN SYNDROME I OF LOWER LIMB, BILATERAL [id number] on November 04, 2024 3:00:04 PM [facility] M79.671 ICD10 PAIN IN RIGHT FOOT [id number] o n November 04, 2024 3:00:04 PM [facility] M79.672 ICD10 PAIN IN LEFT FOOT [id number] on November 04, 2024 3:00:04 PM [facility] F17.210 ICD10 NICOTINE DEPENDE NCE, CIGARETTES, UNCOMPLICATED [id number] on November 04, 2024 3:00:04 PM [facility] Z98.890 ICD10 OTHER SPECIFIED POSTPROCEDUR AL STATES [id number] on November 04, 2024 3:00:04 PM [facility] CARE TEAM Care Outsole Paraffiner Role JEANNA WREN Admitting JEANNA WREN Referring JEANNA WREN Primary Attending DEFINED NO Primary Care CARE TEAM CARE sales technician Role on Team Status Start Date End Date Update d By NO DEFINED PRIMARY C PCP normal October 29, 2024 4:00:00 AM UTC October 29, 2024 5:14:00 PM [place] [id number] on October 29, 2024 5:15:46 PM [facility] HOLGER HUMPHREY Referring normal October 29, 2024 4:00:00 AM UT October 29, 2024 5:14:00 PM [place] [id number] on October 29, 2024 5:15:46 PM [facility] HOLGER HUMPHREY Attending normal October 29, 2024 4:00:00 AM UT October 29, 2024 5:14:00 PM [place] [id number] on October 29, 2024 5:15:46 PM [place] HOLGER HUMPHREY Admitting normal October 29, 2024 4:00:00 AM UT October 29, 2024 5:14:00 PM [place] [id number] on October 29, 2024 5:15:46 PM UT
--- OUTSIDE RECORDS SUMMARY | 2024-12-04 10:12 | XMS_ITS | Continuity of Care Document ---
Author Organization [facility] Address [address] [facility] [address] [place] [address] Care Team Providers Care Oracle Etl Developer Name Role Phone ALEJANDRO HANDY Primary Care Provider [phone] Assessment Encounter Date Assessment Date Assessment LastModified by Organization Details LastModified Time 10/29/2024 10/29/2024 The patient is a 49 year old female self referral for bilateral foot pain with onset 2 years ago. The patient previously [facility] with [facility], as well as Dr. Ventura, whom was prescribing pain medication and starting the process of neuromodulatio n. The patient has DM (last A1C was 7). The patient smokes cigarettes. The patient recently underwent a hernia repair surgery. [email or web address] Not available 10/29/2024 15:12:50 Plan of Treatment Reminders Order Date Submit Date Provider Last Modified By Organization Details Last Modified Time Details Appointments OV EST 15 2024 01:45P Manju SWARTZ PA-C Not available Not available Not available Lab None recorded. Referral None recorded. Procedures None recorded. Surgeries None recorded. Imaging None recorded. Medication Orders pregabali n 150 mg capsule 2024 025 [facility], [address], [facility] [address], [place], [place], [id number], 10/29/2024 21:48:58 Patient TargetsNo targets recorded. Patient Instructions Encounter Date Encounter Id Patient Instructions Last Modified By Organization Details Last Modified Time 10/29/2024 [id number] I have discussed in great detail our [...] the risk of withdrawal and the differences. [email or web address] Not available 10/29/2024 15:31:22 Reason for Referral None Reported. 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 to atheroscler osis [id number] 9108 Active [place] [facility] null, [place] - [facility] [place] & [place] 4 13:40:23 Peripheral angiopathy due to diabetes mellitus 332172714 Active [place] [facility] [place], [place] [facility] [place] [facility] [place] 4 13:40:23 Hypercholes terolemia 73940137 Active [place] [facility] [place], [place] [facility] [place] & [place] 4 13:40:23 Obese abdomen 826586372 Active [place] [facility] [place], [place] [facility] [place] [facility] [place] 4 13:40:24 History of cholecystec jaida 821460415 Active [place] [facility] null, [place] [facility] [place] 4 13:40:24 Swelling of lower limb 514453169 Active [place] [facility] [place], [place] [facility] [place] 4 13:40:24 Diabetes mellitus 28745655 Active [place] [facility] [place], [place] [facility] [place] & [place] 4 13:40:24 Problem Notes None recorded. Procedures Surgical History Date Name Laterality Status Provider Name and Address Organization Details Recorded Time 024 completed Brooke Ramírez [place] [facility] [place] 09/04/2024 08:30:06 024 Abdominal Surgery completed Brooke Darrell [place] [facility] [place] 09/04/2024 08:30:14 01/01/2 023 Abdominal Surgery completed [place] Darrell [place] - [facility] & [place] 09/04/2024 08:30:14 022 Date of Last Colonoscopy completed [place] ALIYAH [facility] & [place] 09/04/2024 08:30:06 022 Date of Last [facility] Smear [facility] [place] [facility] [place] 09/04/2024 08:30:06 Removal of tonsils completed Rica Ayesha r [place] - [facility] & [place] 05/23/2023 13:34:05 Cholecystectomy completed Rica Mart K [place] - [facility] & [place] 05/23/2023 13:34:32 Imaging Results None recorded. Procedure [...] and Address Organization Details Last Updated DateTime 172.72 cm 36.2 kg/m2 481061. 98 g 98.4 [degF] 97 % 97 % 94 /min 143 mm[Hg] 70 mm[Hg] Genie Severino [facility] & [place] 13:23:44 Social History Question Answer Notes LastModified by [employer] Details LastModified Time Tobacco Smoking Status Current Every Day Smoker Rica brumfield, [facility] & [place] 05/23/2023 13:33:51 Do You Have An Advance Directive? No Information not available 09/04/2024 What Was The Date Of Your Most Recent Tobacco Screening? 07/21/2024 Information not available 09/04/2024 What Is Your Current Pack Years? 30ormorepacky ears [email or web address] Information not available 08/29/2023 Are You Passively Exposed To Smoke? No Information not available 09/04/2024 How Much Tobacco Do You Smoke? 1 PPD [email or web address] Information not available 05/23/2023 How Many Years Have You Smoked Tobacco? 25 Information not available 09/04/2024 Sex: Unknown Functional Status Question Answer Note LastModified by [employer] Details LastModified Time Do you use any illicit or recreational drugs? No Information not available 09/04/2024 What is your level of alcohol consumption? 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 Radicular pain 22594497 M54.10 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 276971634 G90.523 - The patient is 1 year [...] 5629 4008 F17.200 Pain in both feet 815358 9925 0345753 M79.671 M79.672 Health Concerns Section Related Observation LastModified by Organization Detai ls LastModified Time None Recorded Concern Status LastModified by Organization Details LastModified Time None Recorded Payers Encounter Date Sequence Insurance Name Policy Number Policy Booker Covered Member ID Booker Member ID Guarantor Name 10/29/2024 1 [facility]: [facility] ([place]) [id number] Rica Maza [id number] 01 Rica Maza Notes Date Note Type Note Provider Name and Address Organization Details Recorded Time 5 text/html The patient is a 49 year old female self referral for bilateral foot pain with onset 2 years ago. The patient previously followed with [facility], as well as Dr. Ventura, whom [...] N/ASurgery: N/AImaging/Studies: Lumbar MRI ABEL SWARTZ PA-C [address], [place], [address], [facility] - [place] & [place] 10/29/2024 21:49:41 OBGyn Episode No OBEpisode recorded.
== END 2024-12-04 23:59 | disposition home or self-care (01) ==
LOC: RAD 10:11
PROVIDERS: PCP Nurse Practitioner Family; Visit Provider Nurse Practitioner Family
DX: Z12.31 Encounter for screening mammogram for malignant neoplasm of breast (principal)
CPT/HCPCS: 77063; 77067